=== PATIENT | female | born 1995 | race Hispanic/Latino ===

== ENCOUNTER 2020-03-24 13:04 | Observation (INO) | payer OTHER ==
[2020-03-24] MEDS ORDERED: LACTATED RINGERS 500 ML IV ONE (15:04)
--- NOTE | 2020-03-24 16:18 | History and Physical Report ---
History of Present Illness Date of examination: 03/24/20 Date of admission: 03/24/20 13:04 History of present illness: PT is a is here for r/o preeclampsia after an isolated BPs in office that was 149/86. All other BPs were WNL. 24 hr urine was 311. PT with no preeclamptic sxs. No other issues during preg. except elevated WBC earlier in the preg. Past History Past Medical History: no pertinent history Past Surgical History: no surgical history Social history: no significant social history - Obstetrical History Expected Date of Delivery: 04/09/20 Actual Gestation: 37 Week(s) 5 Day(s) : 1 Number of Living Children: 0 Medications and Allergies Allergies Allergy/AdvReac Type Severity Reaction Status Date / Time No Known Allergies Allergy Unverified 03/24/20 15:03 Review of Systems All systems: negative (except HPI) - Vital Signs Vital signs: Vital Signs Temp Pulse Pulse Ox 99.0 F 102 H 99 03/24/20 14:23 03/24/20 14:23 03/24/20 14:23 Temp Pulse Resp BP Pulse Ox 99.0 F 91 H 122/73 99 03/24/20 14:23 03/24/20 16:13 03/24/20 16:10 03/24/20 16:13 - Obstetrical FHR: category 1 Uterine Contraction Pattern: Irregular Results All other labs normal. Assessment and Plan Will await preeclamptic labs. IF they are WNL and BPs remain WNL, will send pt home and have her f/u in the office.
[2020-03-24 17:12] LABS: Hematocrit 36.2 % (30.3-42.9); Hemoglobin 12.5 gm/dl (10.1-14.3); Mean Corpuscular HGB Conc 35 % (30-34); Mean Corpuscular Volume 94 fl (79-97); Red Blood Count 3.86 M/mm3 (3.65-5.03); Red Cell Distribution Width 14.3 % (13.2-15.2)
[2020-03-24 17:32] LABS: Alanine Aminotransferase 13 units/L (7-56)
[2020-03-24 17:34] LABS: Platelet Count 186 K/mm3 (140-440)
[2020-03-24 19:42] VITALS: BP 114/66
== END 2020-03-24 20:06 | disposition home or self-care (01) ==
LOC: LD 13:04 → INTOOBSV 13:04
PROVIDERS: ADMIT Obstetrics & Gynecology; ATTEND Obstetrics & Gynecology
DX: O13.3 Gestational [pregnancy-induced] hypertension without significant proteinuria, third trimester (principal); Z3A.37 37 weeks gestation of pregnancy
CPT/HCPCS: 36415; 82565; 83615; 84450; 84460; 84550; 85027; G0378; G0379